=== PATIENT | male | born 1965 | race Caucasian/White ===

== ENCOUNTER → 2016-08-25 | Outpatient (CLI) | payer MEDICARE, MEDICAID ==
[~2016-08-25] MED LIST: ACET50TA PO; ALPR1TAB7 PO; BACL-67 PO; BACL10TA2 PO; BUSP5TA PO; FISH100035 PO; FLUO20CA8 PO; FLUO40CA PO; GABA-283 PO; GABA300C3 PO; HYDR-3713 PO; LODINE PO; MELA1LIQ PO; MELO7.5S PO; MIRT15TA3 PO; SALI0.652; SERO1TAB PO; TRAM50TA2 PO; TRAZ150T PO
--- NOTE | 2016-09-17 01:02 | ECWPNPC ---
PATIENT NAME: ZINA JULIEN JR : 1965 GENDER: MALE VISIT DATE: 08/25/2016 DISCHARGE DATE: 08/25/16 1138 VISIT LOCKED DATE TIME: PHYSICIAN: EVON MCBRIDE RESOURCE: EVON MCBRIDE REASON FOR APPOINTMENT 1. BACK/LEG HISTORY OF PRESENT ILLNESS HISTORY OF PRESENT ILLNESS: PAIN THE PATIENT DESCRIBES THE PAIN... FALL RISK SCREENING: SCREENING :NO FALLS IN THE PAST YEAR TODAY'S VISIT: NOTES: RATES PAIN TODAY 8/10. . IS S/P LESB ON 07/24/16. REPRTS AT LEAST 50% IMPROVEMENT IN PAIN BUT THIS ONLY LAST 1-2 WEEKS. FELT INJECT WAS IN THE RIGHT AREA AND DID FEEL RESPONSE IN RIGHT LEG. STILL USES CANE FOR SUPPORT.. CURRENT MEDICATIONS TAKING ALPRAZOLAM 0.5 MG TABLET 1 TABLET ORALLY TID PRN TAKING BUSPIRONE HCL 5 MG TABLET 1 TABLET ORALLY THREE TIMES A DAY TAKING SEROQUEL 100 100 MG TABLET ORAL DAILY TAKING MIRTAZAPINE 30 MG TABLET 1 TABLET BEFORE BEDTIME IN THE EVENING ORALLY ONCE A DAY TAKING GABAPENTIN 600 MG CAPSULE 1 CAPSULE ORALLY THREE TIMES A DAY TAKING TRAMADOL HCL 50 MG TABLET 1 TAB ORALLY TAKE 1-2 TABS PO Q 6 HRS PRN PAIN MDD=4 TAKING MAGNESIUM-OXIDE 400 (241.3 MG) MG TABLET DIRECTED ORALLY BID TAKING BACLOFEN 20 MG TABLET 1 TABLET WITH FOOD OR MILK ORALLY THREE TIMES A DAY TAKING SOMA 350 MG TABLET 1 TABLET ORALLY BID MDD=2 TAKING LISINOPRIL 5 MG TABLET ORALLY TAKING PERCOCET 5-325 MG TABLET 1 TABLET ORALLY TWICE PER DAY PRN PAIN MDD=2 TAKING NICORETTE 4 MG GUM 1 PIECE NEEDED MOUTH/THROAT 24 TIME(S) A DAY NOT-TAKING FISH OIL 2000 MG CAPSULE 1 CAPSULE ORALLY BID, NOTES: NONE RECENTLY MEDICATION LIST REVIEWED AND RECONCILED WITH THE PATIENT PAST MEDICAL HISTORY HYPERTENSION CHRONIC LOW BACK AND RIGHT LEG PAIN ALLERGIES BEE VENOM: SWELLING: ALLERGY PENICILLIN (FOR ALLERGIES USE ONLY): UNKNOWN: ALLERGY SURGICAL HISTORY DENIES PAST SURGICAL HISTORY SOCIAL HISTORY GENERAL: TOBACCO USE ARE YOU A:NONSMOKER LEARNING BARRIERS / SPECIAL NEEDS ORIENTED TO PLAN OF CARE: PATIENT, PAIN MANAGEMENT PATIENT, ORIENTED TO PLAN OF CARE: PATIENT, PAIN MANAGEMENT PATIENT. NEW PATIENT PAIN DIARY TODAY'S VISITNOTES FROM 0-10, WHAT LEVEL IS YOUR PAIN TODAY?0 PAIN CLINIC PFS, CLERGY, PUBLIC HEALTH REFERRALS PFS REFERRAL NEEDED?NO CLERGY REFERRAL NEEDED?NO PUBLIC HEALTH REFERRAL NEEDED?NO WAS THE PROVIDER NOTIFIED OF ANY PERTINENT INFO?NO PFS REFERRAL NEEDED?NO CLERGY REFERRAL NEEDED?NO PUBLIC HEALTH REFERRAL NEEDED?NO WAS THE PROVIDER NOTIFIED OF ANY PERTINENT INFO?NO HOSPITALIZATION/MAJOR DIAGNOSTIC PROCEDURE SURG RELATED REVIEW OF SYSTEMS CONSTITUTIONAL: ANY CHANGE IN YOUR MEDICAL CONDITION? NO . CHILLS NO . FEVER NO . INFECTION: DO YOU HAVE NEW INFECTIONS? NO . DO YOU HAVE HISTORY OF MRSA? NO . MUSCULOSKELETAL: ANY NEW PATTERNS OF PAIN OR NUMBNESS? NO . GASTROENTEROLOGY: ANY NEW CHANGE IN BOWEL CONTROL? NO . GENITOURINARY: ANY NEW CHANGE IN BLADDER CONTROL? NO . IS THERE A CHANCE YOU COULD BE ? NO . HEMATOLOGY/LYMPH: DO YOU TAKE ANY BLOOD THINNERS? (FOR EXAMPLE- COUMADIN, PLAVIX, AGGRENOX, PLATEL, PRADAXA, OR XARELTO) NO . WHEN WAS YOUR LAST DOSE? DATE: TIME: . NEUROLOGY: HAVE YOU FALLEN IN THE PAST 6 MONTHS? NO . ANY NEW EXTREMITY NUMBNESS OR WEAKNESS? NO . CARDIOLOGY: DO YOU HAVE A PACEMAKER OR DEFIBRILLATOR? NO . RESPIRATORY: HAVE YOU BEEN SICK IN THE PAST WEEK? NO . FEVER NO . FLU LIKE SYMPTOMS? NO . GENERAL SHORTNESS OF BREATH WITH EXERTION . COUGH NO . INTEGUMENTARY: DO YOU HAVE ANY RASHES OR OPEN SORES? NO . ALLERGIC/IMMUNO: ARE YOU ALLERGIC TO SHELLFISH OR IV DYE? NO . ANY NEW ALLERGIES? NO . PSYCHIATRIC: DO YOU HAVE THOUGHTS OF HURTING YOURSELF OR SOMEONE ELSE? NO . ARE YOU ABUSED, NEGLECTED, OR IN AN UNSAFE ENVIRONMENT? NO . ENDOCRINOLOGY: ARE YOU DIABETIC? NO . OTHER: DO YOU NEED ANY PRESCRIPTIONS? NO . IF YES, PLEASE LIST: ____ . ANY NEW PROBLEMS WITH YOUR MEDICATIONS? NO . WHEN DID YOU LAST EAT? ____ . WHEN DID YOU LAST DRINK? ____ . WHAT DID YOU LAST DRINK? ____ . NAME OF PERSON DRIVING YOU HOME? ____ . DO YOU HAVE ANY OTHER QUESTIONS OR CONCERNS NO . REVIEWED BY: PROVIDER: EVON MATTHEW . VITAL SIGNS WT 293 LBS, HT 78 IN, BMI 33.86 INDEX, BP 162/79 MM HG, HR 81 /MIN, RR 16 /MIN, TEMP 97.1 F, OXYGEN SAT % 98, NA INITIALS TL 1100, REVIEWED BY: LS. EXAMINATION GENERAL EXAMINATION: PSYCHALERT , ORIENTED X 3 , APPROPRIATE MOOD AND AFFECT . LUNGS:CLEAR TO AUSCULTATION BILATERALLY. HEART:HEART RATE REGULAR. MUSCULOSKELETAL:PALPATION: POSITIVE FOR PAIN OVER L/S SPINE. POSITIVE FOR PAIN OVER L/S PARSPINALS. POINT TENDERNESS OVER RIGHT SIJ. WEAKNESS IN RIGHT LEG DISTALLY AND PROXIMALLY. CANE USED FOR BALANCE. GAIT ANTALGIC. EXTREMITIES:RIGHT LEG - , TRACE EDEMA, LEG ROTATED AT KNEE. POOR FLEXION/EXTENSION RIGHT ANKLE. ASSESSMENTS INTERVERTEBRAL DISC DISORDER WITH RADICULOPATHY OF LUMBAR REGION - M51.16 (PRIMARY) CHRONIC PRESCRIPTION OPIATE USE - Z79.891 MYALGIA - M79.1 TREATMENT INTERVERTEBRAL DISC DISORDER WITH RADICULOPATHY OF LUMBAR REGION TRIGGER POINT 3 + JAYYJO-ANNEVON LEBRON [place] 08/25/2016 11:24:27 AM > MID AND LOW BACK NOTES: CONTINUE CURRENT MEDS. ICE TO LOW BACK. WALK EVERY DAY. CONTINUE CURRENT MEDS. , #128 - SCREENING BMI AND F/U PLAN IN : BMI ABOVE NORMAL TODAY. DISCUSSED WITH PATIENT NUTRITIONAL FOOD CHOICES TO ASSIST WITH WEIGHT LOSS. RECCOMMENDED REDUCING SALT, SUGAR, SODA INTAKE. RECOMMEND INCREASE ACTIVITY TO INCLUDE WALKING ON A REGULAR BASIS., FALLS CARE PLAN: 1. RECOMMEND REMOVING ALL THROW RUGS. 2. RECOMMEND NIGHT LIGHTS 3. RECOMMEND WEARING RUBBER SOLED SHOES AND TO NOT GO BAREFOOT. 4.. ADVISED TO CHANGE POSITION SLOWLY FROM SUPINE TO STANDING TO AVOID DIZZINESS. 5. ADVISED TO USE ASSISTIVE DEVICE SUCH CANE OR WALKER 6. USE LIFELINE SERVICES OR KEEP PORTABLE PHONE READILY AVAILABLE. CLINICAL NOTES: ISTOP REGISTRY REVIEWED AND DEMNOSTRATES COMPLLIANCE. BRINGS IN MEDICATIONS WHICH IS APPROPRIATE FOR WHAT WAS DISPENSED. RECENT URINE TOXICOLOGY REVIEWED. NO UNAUTHORIZED MEDICATIONS. NO ILLICIT SUBSTANCES AND PRESCRIBED MEDICATIONS WERE PRESENT. PREVENTIVE MEDICINE PAIN CLINIC TEACHING: PROCEDURE TEACHING PRE TRIGGER POINT INJECTION INSTRUCTIONS REVIEWED WITH PT. VERBALZIED UNDERSTANDING.. PROCEDURE CODES FA211 ESTABILISHED PATIENT [facility] CHARGE G8443 BP SCR PRFRM RCMDD DEFIND SCR INTVL G5830 PAIN ASSESS POS TOOL F/U PLAN DOC 3016F PT SCRND UNHLTHY [place] USE 1124F ACP DISCUSS-NO DSCNMKR DOCD 1036F TOBACCO NON-USER 0518F FALL PLAN OF CARE DOCD G8427 DOC MEDS VERIFIED W/PT OR RE G8417 BMI >=30 CALCUATE W/FOLLOWUP 3288F FALL RISK ASSESSMENT DOCD FOLLOW UP AFTER INJECTION (REASON: CHECK AUTH FOR TPI. PLEASE CHECK INSURANCE. PT DOESN'T THINK HE HAS MEDICARE EXCEPT FOR MEDS) ELECTRONICALLY SIGNED BY MARILU ROA ON 09/16/2016 AT 11:07 AM EST DISCLAIMER : THIS IS A VISIT SUMMARY EXTRACTED FROM THE [facility] CHART. IT IS NOT A COPY OF THE [facility] PROGRESS NOTE. MTDD
== END ==
LOC: M PAIN 10:20
PROVIDERS: ATTEND Nurse Practitioner Family
DX: Z09 Encounter for follow-up examination after completed treatment for conditions other than malignant neoplasm (principal); G89.29 Other chronic pain; M51.16 Intervertebral disc disorders with radiculopathy, lumbar region; M79.1 Myalgia; I10 Essential (primary) hypertension; M54.5 Low back pain; M79.604 Pain in right leg; Z91.030 Bee allergy status; Z88.0 Allergy status to penicillin; Z79.891 Long term (current) use of opiate analgesic; Z79.899 Other long term (current) drug therapy

== ENCOUNTER → 2016-09-03 | Outpatient (CLI) | payer MEDICARE, MEDICAID ==
[~2016-09-03] MED LIST changes: +BUPIVACAINE HCL 0.25% 10 ML VIAL As Ordered ONE; +BUPIVACAINE HCL 0.25% 30 ML VIAL As Ordered ONE; +TRIAMCINOLONE ACETONIDE SUSP 40 MG/ML VIAL (J3301) As Ordered ONE; +diazePAM 5 MG TAB As Ordered ONE; +oxyCODONE 5MG TAB As Ordered ONE
--- NOTE | 2016-09-13 23:59 | ECWPNPC ---
PATIENT NAME: ZINA JULIEN JR : 1965 GENDER: MALE VISIT DATE: 09/03/2016 DISCHARGE DATE: 09/03/16 1235 VISIT LOCKED DATE TIME: PHYSICIAN: JIM LANDIN RESOURCE: JIM LANDIN REASON FOR APPOINTMENT 1. MID & LOW BACK CURRENT MEDICATIONS TAKING ALPRAZOLAM 0.5 MG TABLET 1 TABLET ORALLY TID PRN, NOTES: 09-03-16729 TAKING BUSPIRONE HCL 5 MG TABLET 1 TABLET ORALLY THREE TIMES A DAY, NOTES: 09-03-16729 TAKING SEROQUEL 100 100 MG TABLET ORAL DAILY, NOTES: 09-02-161999 TAKING MIRTAZAPINE 30 MG TABLET 1 TABLET BEFORE BEDTIME IN THE EVENING ORALLY ONCE A DAY, NOTES: 09-02-161999 TAKING GABAPENTIN 600 MG CAPSULE 1 CAPSULE ORALLY THREE TIMES A DAY, NOTES: 09-03-16729 TAKING TRAMADOL HCL 50 MG TABLET 1 TAB ORALLY TAKE 1-2 TABS PO Q 6 HRS PRN PAIN MDD=4, NOTES: 09-03-16729 TAKING MAGNESIUM-OXIDE 400 (241.3 MG) MG TABLET DIRECTED ORALLY BID, NOTES: 09-03-16729 TAKING BACLOFEN 20 MG TABLET 1 TABLET WITH FOOD OR MILK ORALLY THREE TIMES A DAY, NOTES: 09-03-16729 TAKING SOMA 350 MG TABLET 1 TABLET ORALLY BID MDD=2, NOTES: 09-03-16729 TAKING LISINOPRIL 5 MG TABLET ORALLY , NOTES: 09-03-16729 TAKING PERCOCET 5-325 MG TABLET 1 TABLET ORALLY TWICE PER DAY PRN PAIN MDD=2, NOTES: 09-03-16729 TAKING NICORETTE 4 MG GUM 1 PIECE NEEDED MOUTH/THROAT 24 TIME(S) A DAY, NOTES: 09-02-161999 NOT-TAKING FISH OIL 2000 MG CAPSULE 1 CAPSULE ORALLY BID, NOTES: NONE RECENTLY MEDICATION LIST REVIEWED AND RECONCILED WITH THE PATIENT PAST MEDICAL HISTORY HYPERTENSION CHRONIC LOW BACK AND RIGHT LEG PAIN ALLERGIES BEE VENOM: SWELLING: ALLERGY PENICILLIN (FOR ALLERGIES USE ONLY): UNKNOWN: ALLERGY VITAL SIGNS WT 282.4 LBS, HT 78 IN, BMI 32.63 INDEX, BP 141/69 MM HG, HR 68 /MIN, RR 16 /MIN, TEMP 96.0 F, OXYGEN SAT % 97, NA INITIALS TL 1038, REVIEWED BY: KG. ASSESSMENTS MYALGIA - M79.1 (PRIMARY) PROCEDURES PN TRIGGER POINT INJECTION WITH STEROIDS PRE PROCEDURE DIAGNOSIS 1. MYALGIA 2. PAIN AT BILATERAL LOW BACK AREA POST PROCEDURE DIAGNOSIS 1. MYALGIA 2. PAIN AT BILATERAL LOW BACK AREA PROCEDURE TRIGGER POINT INJECTION AT BILATERAL LOW BACK AREA SURGEON DR. JIM LANDIN DEHYDROGENATION OPERATOR HEAD NONE ANESTHESIA LOCAL PRE PROCEDURE NOTE THE PATIENT HAS A HISTORY OF CHRONIC PAIN AT THE RIGHT AND LEFT LOW BACK AREA. I EVALUATE THE PATIENT AND REVIEWED THE CHART. THERE IS EVIDENCE OF BANDS OF TISSUE WITH RESTRICTION OF MOVEMENT AND PRESENCE OF TRIGGER POINT AT THE AFFECTED AREA. I WENT OVER THE RISKS, ALTERNATIVES, AND BENEFITS ASSOCIATED WITH THIS PROCEDURE. THE PATIENT WOULD LIKE TO PROCEED AND GIVE CONSENT TO PERFORMED THE PROCEDURE. THE PATIENT DENIES UNEXPLAINABLE WEIGHT LOSS, FEVER, CHILLS, OR NEW CHANGES IN URINARY OR BOWEL CONTROL DESCRIPTION OF PROCEDURE THE PATIENT WAS BROUGHT TO THE PROCEDURE ROOM AND PLACED IN THE SITTING POSITION. THE AREA WAS CLEANED WITH ALCOHOL. THE PROCEDURE WAS DONE USING ASEPTIC STERILE TECHNIQUE. I CHECKED LATERALITY AND THE LEVEL WHERE THE PROCEDURE WAS GOING TO BE PERFORMED WITH THE PATIENT AND THE SUPPORTING STAFF AT THE MOMENT OF THE TIME OUT IN THE PROCEDURE ROOM. USING A 25-GAUGE NEEDLE, TRIGGER POINTS WERE INJECTED AT THE RIGHT AND LEFT LOW BACK AREA WITH A TOTAL OF 40 ML OF BUPIVACAINE 0.25% AND KENALOG 40 MG. THERE WAS NO EVIDENCE OF BLOOD, PARESTHESIA OR CEREBROSPINAL FLUID DURING THE PROCEDURE. THE PATIENT WAS SENT TO THE RECOVERY ROOM. THE PATIENT WAS MOVING THE EXTREMITIES AND DOING WELL. THERE WAS NO COMPLICATION DURING THE PROCEDURE POST PROCEDURE NOTE THE PATIENT WILL BE SEEN IN A FOLLOW UP IN THE NEXT FEW WEEKS. INSTRUCTIONS WERE GIVEN, QUESTIONS WERE ANSWERED, AND THE PATIENT EXPRESSED UNDERSTANDING AND AGREES WITH THE PLAN. INSTRUCTIONS WERE GIVEN, QUESTIONS WERE ANSWERED, PATIENT REPORTS UNDERSTANDING AND AGREES WITH THE PLAN. I, ESTEFANY BARBA, DOCUMENTED THE ABOVE INFORMATION ACTING A SCRIBE FOR DR. LANDIN. I HAVE REVIEWED THE ABOVE DOCUMENT, WRITTEN BY ESTEFANY DENISE AND I VERIFY THAT IT IS ACCURATE. PROCEDURE CODES 62411 INJ TRIGGER POINT / [facility] FOLLOW UP 3 WEEKS ELECTRONICALLY SIGNED BY JIM LANDIN MD ON 09/13/2016 AT 07:31 PM EST DISCLAIMER : THIS IS A VISIT SUMMARY EXTRACTED FROM THE [employer] CHART. IT IS NOT A COPY OF THE [employer] PROGRESS NOTE. [facility]
== END ==
LOC: M PAIN 10:40
PROVIDERS: ATTEND Anesthesiology
DX: G89.29 Other chronic pain (principal); M79.1 Myalgia; M54.5 Low back pain; I10 Essential (primary) hypertension; Z91.030 Bee allergy status; Z88.0 Allergy status to penicillin; Z79.891 Long term (current) use of opiate analgesic; Z79.899 Other long term (current) drug therapy
CPT/HCPCS: 20552; J3301

== ENCOUNTER → 2016-10-08 | Outpatient (CLI) | payer MEDICARE, MEDICAID ==
[~2016-10-08] MED LIST changes: -BUPIVACAINE HCL 0.25% 10 ML VIAL As Ordered ONE; -BUPIVACAINE HCL 0.25% 30 ML VIAL As Ordered ONE; -TRIAMCINOLONE ACETONIDE SUSP 40 MG/ML VIAL (J3301) As Ordered ONE; -diazePAM 5 MG TAB As Ordered ONE; -oxyCODONE 5MG TAB As Ordered ONE
--- NOTE | 2016-10-09 00:46 | ECWPNPC ---
PATIENT NAME: ZINA JULIEN JR : 1965 GENDER: MALE VISIT DATE: 10/08/2016 DISCHARGE DATE: 10/08/16 1101 VISIT LOCKED DATE TIME: PHYSICIAN: EVON MCBRIDE RESOURCE: EVON MCBRIDE REASON FOR APPOINTMENT 1. BACK HISTORY OF PRESENT ILLNESS HISTORY OF PRESENT ILLNESS: PAIN THE PATIENT DESCRIBES THE PAIN... FALL RISK SCREENING: SCREENING :NO FALLS IN THE PAST YEAR TODAY'S VISIT: NOTES: RATES PAIN TODAY 6/10. IS S/P TPI WHICH WERE VERY PAIN FUL BUT DID DECREASE THE PAIN IN THE LOW BACK. CAN MOVE MORE EASILY.STATES HE DOES NOT WANT ANY FURTHER INJECTIONS. REPORTS PERSISTANT PAIN IN RIGHT LEG WHICH HAS NEVER IMROVED. HAS BEEN WORKING HARD ON WEIGHT LOSS AND GENERALLY FEELS BETTER.. CURRENT MEDICATIONS TAKING ALPRAZOLAM 0.5 MG TABLET 1 TABLET ORALLY TID PRN TAKING BUSPIRONE HCL 5 MG TABLET 1 TABLET ORALLY THREE TIMES A DAY TAKING SEROQUEL 100 100 MG TABLET ORAL DAILY TAKING MIRTAZAPINE 30 MG TABLET 1 TABLET BEFORE BEDTIME IN THE EVENING ORALLY ONCE A DAY TAKING GABAPENTIN 600 MG CAPSULE 1 CAPSULE ORALLY THREE TIMES A DAY TAKING TRAMADOL HCL 50 MG TABLET 1 TAB ORALLY TAKE 1-2 TABS PO Q 6 HRS PRN PAIN MDD=4 TAKING MAGNESIUM-OXIDE 400 (241.3 MG) MG TABLET DIRECTED ORALLY BID TAKING BACLOFEN 20 MG TABLET 1 TABLET WITH FOOD OR MILK ORALLY THREE TIMES A DAY TAKING SOMA 350 MG TABLET 1 TABLET ORALLY BID MDD=2 TAKING LISINOPRIL 5 MG TABLET ORALLY TAKING NICORETTE 4 MG GUM 1 PIECE NEEDED MOUTH/THROAT 24 TIME(S) A DAY TAKING PERCOCET 5-325 MG TABLET 1 TABLET ORALLY TWICE PER DAY PRN PAIN MDD=2 NOT-TAKING FISH OIL 2000 MG CAPSULE 1 CAPSULE ORALLY BID, NOTES: NONE RECENTLY MEDICATION LIST REVIEWED AND RECONCILED WITH THE PATIENT PAST MEDICAL HISTORY HYPERTENSION CHRONIC LOW BACK AND RIGHT LEG PAIN ALLERGIES BEE VENOM: SWELLING: ALLERGY PENICILLIN (FOR ALLERGIES USE ONLY): UNKNOWN: ALLERGY SOCIAL HISTORY GENERAL: TOBACCO USE ARE YOU A:NONSMOKER LEARNING BARRIERS / SPECIAL NEEDS ORIENTED TO PLAN OF CARE: PATIENT, PAIN MANAGEMENT PATIENT, ORIENTED TO PLAN OF CARE: PATIENT, PAIN MANAGEMENT PATIENT. NEW PATIENT PAIN DIARY TODAY'S VISITNOTES FROM 0-10, WHAT LEVEL IS YOUR PAIN TODAY?0 PAIN CLINIC PFS, CLERGY, PUBLIC HEALTH REFERRALS PFS REFERRAL NEEDED?NO CLERGY REFERRAL NEEDED?NO PUBLIC HEALTH REFERRAL NEEDED?NO WAS THE PROVIDER NOTIFIED OF ANY PERTINENT INFO?NO PFS REFERRAL NEEDED?NO CLERGY REFERRAL NEEDED?NO PUBLIC HEALTH REFERRAL NEEDED?NO WAS THE PROVIDER NOTIFIED OF ANY PERTINENT INFO?NO REVIEW OF SYSTEMS CONSTITUTIONAL: ANY CHANGE IN YOUR MEDICAL CONDITION? NO . CHILLS NO . FEVER NO . INFECTION: DO YOU HAVE NEW INFECTIONS? NO . DO YOU HAVE HISTORY OF MRSA? NO . MUSCULOSKELETAL: ANY NEW PATTERNS OF PAIN OR NUMBNESS? NO . GASTROENTEROLOGY: ANY NEW CHANGE IN BOWEL CONTROL? NO . GENITOURINARY: ANY NEW CHANGE IN BLADDER CONTROL? NO . IS THERE A CHANCE YOU COULD BE ? NO . HEMATOLOGY/LYMPH: DO YOU TAKE ANY BLOOD THINNERS? (FOR EXAMPLE- COUMADIN, PLAVIX, AGGRENOX, PLATEL, PRADAXA, OR XARELTO) NO . WHEN WAS YOUR LAST DOSE? DATE: TIME: . NEUROLOGY: HAVE YOU FALLEN IN THE PAST 6 MONTHS? NO . ANY NEW EXTREMITY NUMBNESS OR WEAKNESS? NO . CARDIOLOGY: DO YOU HAVE A PACEMAKER OR DEFIBRILLATOR? NO . CHEST PAIN PATIENT DENIES . RESPIRATORY: HAVE YOU BEEN SICK IN THE PAST WEEK? NO . FEVER NO . FLU LIKE SYMPTOMS? NO . DO YOU USE ANY TYPE OF TOBACCO (SMOKE, SMOKELESS, CHEW)? REMAINS NONSMOKING . COUGH NO . INTEGUMENTARY: DO YOU HAVE ANY RASHES OR OPEN SORES? NO . ALLERGIC/IMMUNO: ARE YOU ALLERGIC TO SHELLFISH OR IV DYE? NO . ANY NEW ALLERGIES? NO . PSYCHIATRIC: DO YOU HAVE THOUGHTS OF HURTING YOURSELF OR SOMEONE ELSE? NO . ARE YOU ABUSED, NEGLECTED, OR IN AN UNSAFE ENVIRONMENT? NO . ENDOCRINOLOGY: ARE YOU DIABETIC? YES . OTHER: DO YOU NEED ANY PRESCRIPTIONS? NO . IF YES, PLEASE LIST: ____ . ANY NEW PROBLEMS WITH YOUR MEDICATIONS? NO . WHEN DID YOU LAST EAT? ____ . WHEN DID YOU LAST DRINK? ____ . WHAT DID YOU LAST DRINK? ____ . NAME OF PERSON DRIVING YOU HOME? ____ . DO YOU HAVE ANY OTHER QUESTIONS OR CONCERNS NO . REVIEWED BY: PROVIDER: . VITAL SIGNS WT 282.2 LBS, HT 78 IN, BMI 32.61 INDEX, BP 164/76 MM HG, HR 86 /MIN, RR 20 /MIN, TEMP 95.4 F, OXYGEN SAT % 96%, NA INITIALS SC 10:10, REVIEWED BY: KG. EXAMINATION GENERAL EXAMINATION: PSYCHALERT , ORIENTED X 3 , APPROPRIATE MOOD AND AFFECT, SMILING TODAY . LUNGS:CLEAR TO AUSCULTATION BILATERALLY. HEART:HEART RATE REGULAR. MUSCULOSKELETAL:PALPATION: TENDER OVER LUMBAR SPINOUS PROCESSES WEAKKNESS IN RIGHT LEG DISTALLY AND PROXIMALLY. CANE USED FOR BALANCE. GAIT ANTALGIC. VERY FEW TRIGGERPOINT IDENTIFIED OVER LUMBAR PARASPINOUS MUSCLES.. EXTREMITIES:RIGHT LEG - LEG ROTATED AT KNEE. POOR FLEXION/EXTENSION RIGHT ANKLE. ASSESSMENTS MYALGIA - M79.1 (PRIMARY) INTERVERTEBRAL DISC DISORDER WITH RADICULOPATHY OF LUMBAR REGION - M51.16 CHRONIC PRESCRIPTION OPIATE USE - Z79.891 TREATMENT MYALGIA REFILL SOMA TABLET, 350 MG, 1 TABLET, ORALLY, BID MDD=2, 30 DAY(S), 60, REFILLS 3 REFILL TRAMADOL HCL TABLET, 50 MG, 1 TAB, ORALLY, TAKE 1-2 TABS PO Q 6 HRS PRN PAIN MDD=4, 30 DAY(S), 120, REFILLS 5 REFILL PERCOCET TABLET, 5-325 MG, 1 TABLET, ORALLY, TWICE PER DAY PRN PAIN MDD=2, 30 DAY(S), 60, REFILLS 0 REFILL GABAPENTIN CAPSULE, 600 MG, 1 CAPSULE, ORALLY, THREE TIMES A DAY, 30 DAY(S), 90 CAPSULE, REFILLS 5 NOTES: KEEP WALKING AND MOVING. PROCEDURE CODES FA211 ESTABILISHED PATIENT [facility] CHARGE G8783 BP SCR PRFRM RCMDD DEFIND SCR INTVL G8730 PAIN ASSESS POS TOOL F/U PLAN DOC 3016F PT SCRND UNHLTHY [place] USE 1124F ACP DISCUSS-NO DSCNMKR DOCD 1036F TOBACCO NON-USER 0518F FALL PLAN OF CARE DOCD G8427 DOC MEDS VERIFIED W/PT OR RE G8417 BMI >=30 CALCUATE W/FOLLOWUP 3288F FALL RISK ASSESSMENT DOCD DISPOSITION & COMMUNICATION FOLLOW UP 2 MONTHS ELECTRONICALLY SIGNED BY MARILU ROA ON 10/08/2016 AT 11:04 AM EST DISCLAIMER : THIS IS A VISIT SUMMARY EXTRACTED FROM THE [facility] CHART. IT IS NOT A COPY OF THE [facility] PROGRESS NOTE. MTDD
== END ==
LOC: M PAIN 10:00
PROVIDERS: ATTEND Nurse Practitioner Family
DX: Z09 Encounter for follow-up examination after completed treatment for conditions other than malignant neoplasm (principal); G89.29 Other chronic pain; M79.1 Myalgia; M51.16 Intervertebral disc disorders with radiculopathy, lumbar region; I10 Essential (primary) hypertension; E11.9 Type 2 diabetes mellitus without complications; Z91.030 Bee allergy status; Z88.0 Allergy status to penicillin; Z79.891 Long term (current) use of opiate analgesic; Z79.899 Other long term (current) drug therapy

== ENCOUNTER → 2016-11-20 | Outpatient (CLI) | payer MEDICARE, MEDICAID ==
[~2016-11-20] MED LIST changes: +GABA-282 PO; -GABA300C3 PO
--- NOTE | 2016-12-05 00:53 | ECWPNPC ---
PATIENT NAME: ZINA JULIEN JR : 1965 GENDER: MALE VISIT DATE: 11/20/2016 DISCHARGE DATE: 11/20/16 1031 VISIT LOCKED DATE TIME: PHYSICIAN: EVON MCBRIDE RESOURCE: EVON MCBRIDE REASON FOR APPOINTMENT 1. BACK HISTORY OF PRESENT ILLNESS HISTORY OF PRESENT ILLNESS: PAIN THE PATIENT DESCRIBES THE PAIN... FALL RISK SCREENING: SCREENING :NO FALLS IN THE PAST YEAR TODAY'S VISIT: NOTES: TENDER ACROSS THE LOW BACKAND RIGHT LEG TO LEVEL OF HIP. RATES PAIN TODAY 6/10. DESCRIBES PAIN CONSTANT, SHARP, STABBING, TENDER AND SORE. NOTES HE IS VERY STIFF ESPECIALLY IN THE MORNING. CURRENT MEDICATIONS TAKING ALPRAZOLAM 0.5 MG TABLET 1 TABLET ORALLY TID PRN TAKING BUSPIRONE HCL 5 MG TABLET 1 TABLET ORALLY THREE TIMES A DAY TAKING SEROQUEL 100 100 MG TABLET ORAL DAILY TAKING MIRTAZAPINE 30 MG TABLET 1 TABLET BEFORE BEDTIME IN THE EVENING ORALLY ONCE A DAY TAKING LISINOPRIL 5 MG TABLET ORALLY TAKING NICORETTE 4 MG GUM 1 PIECE NEEDED MOUTH/THROAT 24 TIME(S) A DAY TAKING SOMA 350 MG TABLET 1 TABLET ORALLY BID MDD=2 TAKING TRAMADOL HCL 50 MG TABLET 1 TAB ORALLY TAKE 1-2 TABS PO Q 6 HRS PRN PAIN MDD=4 TAKING GABAPENTIN 600 MG CAPSULE 1 CAPSULE ORALLY THREE TIMES A DAY TAKING MAGNESIUM-OXIDE 400 (241.3 MG) MG TABLET DIRECTED ORALLY BID TAKING BACLOFEN 20 MG TABLET 1 TABLET WITH FOOD OR MILK ORALLY THREE TIMES A DAY TAKING PERCOCET 5-325 MG TABLET 1 TABLET ORALLY TWICE PER DAY PRN PAIN MDD=2 NOT-TAKING FISH OIL 2000 MG CAPSULE 1 CAPSULE ORALLY BID, NOTES: NONE RECENTLY MEDICATION LIST REVIEWED AND RECONCILED WITH THE PATIENT PAST MEDICAL HISTORY HYPERTENSION CHRONIC LOW BACK AND RIGHT LEG PAIN ALLERGIES BEE VENOM: SWELLING: ALLERGY PENICILLIN (FOR ALLERGIES USE ONLY): UNKNOWN: ALLERGY SOCIAL HISTORY GENERAL: PAIN CLINIC PFS, CLERGY, PUBLIC HEALTH REFERRALS CLERGY REFERRAL NEEDED?NO WAS THE PROVIDER NOTIFIED OF ANY PERTINENT INFO?NO PFS REFERRAL NEEDED?NO PUBLIC HEALTH REFERRAL NEEDED?NO PATIENT: ____. REVIEW OF SYSTEMS CONSTITUTIONAL: ANY CHANGE IN YOUR MEDICAL CONDITION? NO . CHILLS NO . FEVER NO . INFECTION: DO YOU HAVE NEW INFECTIONS? NO . DO YOU HAVE HISTORY OF MRSA? NO . MUSCULOSKELETAL: ANY NEW PATTERNS OF PAIN OR NUMBNESS? NO . GASTROENTEROLOGY: ANY NEW CHANGE IN BOWEL CONTROL? NO . GENITOURINARY: ANY NEW CHANGE IN BLADDER CONTROL? NO . IS THERE A CHANCE YOU COULD BE ? NO . HEMATOLOGY/LYMPH: DO YOU TAKE ANY BLOOD THINNERS? (FOR EXAMPLE- COUMADIN, PLAVIX, AGGRENOX, PLATEL, PRADAXA, OR XARELTO) NO . WHEN WAS YOUR LAST DOSE? DATE: TIME: . NEUROLOGY: HAVE YOU FALLEN IN THE PAST 6 MONTHS? NO . ANY NEW EXTREMITY NUMBNESS OR WEAKNESS? NO . CARDIOLOGY: DO YOU HAVE A PACEMAKER OR DEFIBRILLATOR? NO . RESPIRATORY: HAVE YOU BEEN SICK IN THE PAST WEEK? NO . FEVER NO . FLU LIKE SYMPTOMS? NO . COUGH NO . INTEGUMENTARY: DO YOU HAVE ANY RASHES OR OPEN SORES? NO . ALLERGIC/IMMUNO: ARE YOU ALLERGIC TO SHELLFISH OR IV DYE? NO . ANY NEW ALLERGIES? NO . PSYCHIATRIC: DO YOU HAVE THOUGHTS OF HURTING YOURSELF OR SOMEONE ELSE? NO . ARE YOU ABUSED, NEGLECTED, OR IN AN UNSAFE ENVIRONMENT? NO . ENDOCRINOLOGY: ARE YOU DIABETIC? NO . OTHER: DO YOU NEED ANY PRESCRIPTIONS? YES . IF YES, PLEASE LIST: BACLOFEN . ANY NEW PROBLEMS WITH YOUR MEDICATIONS? NO . WHEN DID YOU LAST EAT? ____ . WHEN DID YOU LAST DRINK? ____ . WHAT DID YOU LAST DRINK? ____ . NAME OF PERSON DRIVING YOU HOME? ____ . DO YOU HAVE ANY OTHER QUESTIONS OR CONCERNS NO . REVIEWED BY: PROVIDER: EVON MATTHEW . VITAL SIGNS WT 290 LBS, HT 78 IN, BMI 33.51 INDEX, BP 166/72 MM HG, HR 80 /MIN, RR 20 /MIN, TEMP 97.2 F, OXYGEN SAT % 93%, NA INITIALS SC 10:16, REVIEWED BY: NL. EXAMINATION GENERAL EXAMINATION: PSYCHALERT , ORIENTED X 3 , APPROPRIATE MOOD AND AFFECT, SMILING TODAY . LUNGS:CLEAR TO AUSCULTATION BILATERALLY. HEART:HEART RATE REGULAR. MUSCULOSKELETAL:PALPATION: TENDER OVER LUMBAR SPINOUS PROCESSES WEAKKNESS IN RIGHT LEG DISTALLY AND PROXIMALLY. CANE USED FOR BALANCE. GAIT ANTALGIC. VERY FEW TRIGGERPOINT IDENTIFIED OVER LUMBAR PARASPINOUS MUSCLES.. EXTREMITIES:RIGHT LEG - LEG ROTATED AT KNEE. POOR FLEXION/EXTENSION RIGHT ANKLE. ASSESSMENTS INTERVERTEBRAL DISC DISORDER WITH RADICULOPATHY OF LUMBAR REGION - M51.16 (PRIMARY) MYALGIA - M79.1 TREATMENT INTERVERTEBRAL DISC DISORDER WITH RADICULOPATHY OF LUMBAR REGION REFILL BACLOFEN TABLET, 20 MG, 1 TABLET WITH FOOD OR MILK, ORALLY, THREE TIMES A DAY, 30 DAY(S), 90 TABLET, REFILLS 5 NOTES: CONTINUE CURRENT MEDSCONTINUE EXERCISES AND STRETCHES. KEEP MEDS SECURED. CLINICAL NOTES: ISTOP REGISTRY REVIEWED AND DEMNOSTRATES COMPLLIANCE. BRINGS IN MEDICATIONS WHICH IS APPROPRIATE FOR WHAT WAS DISPENSED. RECENT URINE TOXICOLOGY REVIEWED. NO UNAUTHORIZED MEDICATIONS. NO ILLICIT SUBSTANCES AND PRESCRIBED MEDICATIONS WERE PRESENT. PROCEDURE CODES [id number] ESTABILISHED PATIENT [facility] CHARGE [id number] PAIN ASSESS POS TOOL F/U PLAN DOC G8427 DOC MEDS VERIFIED W/PT OR RE DISPOSITION & COMMUNICATION FOLLOW UP 3 MONTHS ELECTRONICALLY SIGNED BY MARILU ROA ON 12/04/2016 AT 09:09 AM EDT DISCLAIMER : THIS IS A VISIT SUMMARY EXTRACTED FROM THE [facility] CHART. IT IS NOT A COPY OF THE [facility] PROGRESS NOTE. CINDY
== END ==
LOC: M PAIN 10:00
PROVIDERS: ATTEND Nurse Practitioner Family
DX: M51.16 Intervertebral disc disorders with radiculopathy, lumbar region (principal); M79.1 Myalgia; I10 Essential (primary) hypertension; Z88.0 Allergy status to penicillin; Z91.030 Bee allergy status; Z79.891 Long term (current) use of opiate analgesic

== ENCOUNTER → 2017-02-19 | Outpatient (CLI) | payer MEDICARE, MEDICAID ==
[~2017-02-19] MED LIST changes: -BACL-67 PO; +BACL1TAB9 PO
--- NOTE | 2017-03-15 00:34 | ECWPNPC ---
PATIENT NAME: ZINA JULIEN JR : 1965 GENDER: MALE VISIT DATE: 02/19/2017 DISCHARGE DATE: 02/19/17 1106 VISIT LOCKED DATE TIME: PHYSICIAN: EVON MCBRIDE RESOURCE: EVON MCBRIDE REASON FOR APPOINTMENT 1. BACK HISTORY OF PRESENT ILLNESS HISTORY OF PRESENT ILLNESS: PAIN THE PATIENT DESCRIBES THE PAIN... FALL RISK SCREENING: SCREENING :NO FALLS IN THE PAST YEAR TODAY'S VISIT: NOTES: RATES PAIN LEVEL TODAY 4-6/10 PAIN CONTINUES IN LOW BACK WITH RADIATION DOWN RIGHT LEG TO FOOT. HAS BEEN DECREASING MEDICATIONS. PAIN WAS BETTER WITH THE SOMA BUT CAN NOT AFFORD THEM. . CURRENT MEDICATIONS TAKING ALPRAZOLAM 0.5 MG TABLET 1 TABLET ORALLY TWICE A DAY TAKING BUSPIRONE HCL 5 MG TABLET 1 TABLET ORALLY TWICE A DAY TAKING SEROQUEL 100 100 MG TABLET ORAL DAILY TAKING MIRTAZAPINE 30 MG TABLET 1 TABLET BEFORE BEDTIME IN THE EVENING ORALLY ONCE A DAY TAKING LISINOPRIL 5 MG TABLET ORALLY TAKING NICORETTE 4 MG GUM 1 PIECE NEEDED MOUTH/THROAT 24 TIME(S) A DAY TAKING TRAMADOL HCL 50 MG TABLET 1 TAB ORALLY TAKE 1-2 TABS PO Q 6 HRS PRN PAIN MDD=4 TAKING MAGNESIUM-OXIDE 400 (241.3 MG) MG TABLET DIRECTED ORALLY ONCE DAILY TAKING BACLOFEN 20 MG TABLET 1 TABLET WITH FOOD OR MILK ORALLY TWICE DAILY TAKING PERCOCET 5-325 MG TABLET 1 TABLET ORALLY TWICE PER DAY PRN PAIN MDD=2 TAKING SOMA 350 MG TABLET 1 TABLET ORALLY BID MDD=2, NOTES: NOT TAKING / INSURANCE NOT-TAKING GABAPENTIN 600 MG CAPSULE 1 CAPSULE ORALLY THREE TIMES A DAY NOT-TAKING FISH OIL 2000 MG CAPSULE 1 CAPSULE ORALLY BID, NOTES: NONE RECENTLY MEDICATION LIST REVIEWED AND RECONCILED WITH THE PATIENT PAST MEDICAL HISTORY HYPERTENSION CHRONIC LOW BACK AND RIGHT LEG PAIN ALLERGIES BEE VENOM: SWELLING: ALLERGY PENICILLIN (FOR ALLERGIES USE ONLY): UNKNOWN: ALLERGY REVIEW OF SYSTEMS REVIEWED BY: PROVIDER: EVON MATTHEW . CONSTITUTIONAL: ANY CHANGE IN YOUR MEDICAL CONDITION? NO . CHILLS NO . FEVER NO . INFECTION: DO YOU HAVE NEW INFECTIONS? NO . DO YOU HAVE HISTORY OF MRSA? NO . MUSCULOSKELETAL: ANY NEW PATTERNS OF PAIN OR NUMBNESS? NO . GASTROENTEROLOGY: ANY NEW CHANGE IN BOWEL CONTROL? NO . GENITOURINARY: ANY NEW CHANGE IN BLADDER CONTROL? NO . IS THERE A CHANCE YOU COULD BE ? NO . HEMATOLOGY/LYMPH: DO YOU TAKE ANY BLOOD THINNERS? (FOR EXAMPLE- COUMADIN, PLAVIX, AGGRENOX, PLATEL, PRADAXA, OR XARELTO) NO . WHEN WAS YOUR LAST DOSE? DATE: TIME: . NEUROLOGY: HAVE YOU FALLEN IN THE PAST 6 MONTHS? NO . ANY NEW EXTREMITY NUMBNESS OR WEAKNESS? NO . CARDIOLOGY: DO YOU HAVE A PACEMAKER OR DEFIBRILLATOR? NO . RESPIRATORY: HAVE YOU BEEN SICK IN THE PAST WEEK? NO . FEVER NO . FLU LIKE SYMPTOMS? NO . COUGH NO . INTEGUMENTARY: DO YOU HAVE ANY RASHES OR OPEN SORES? NO . ALLERGIC/IMMUNO: ARE YOU ALLERGIC TO SHELLFISH OR IV DYE? NO . ANY NEW ALLERGIES? NO . PSYCHIATRIC: DO YOU HAVE THOUGHTS OF HURTING YOURSELF OR SOMEONE ELSE? NO . ARE YOU ABUSED, NEGLECTED, OR IN AN UNSAFE ENVIRONMENT? NO . ENDOCRINOLOGY: ARE YOU DIABETIC? NO . OTHER: DO YOU NEED ANY PRESCRIPTIONS? NO . IF YES, PLEASE LIST: ____ . ANY NEW PROBLEMS WITH YOUR MEDICATIONS? NO . WHEN DID YOU LAST EAT? ____ . WHEN DID YOU LAST DRINK? ____ . WHAT DID YOU LAST DRINK? ____ . NAME OF PERSON DRIVING YOU HOME? ____ . DO YOU HAVE ANY OTHER QUESTIONS OR CONCERNS NO . VITAL SIGNS WT 277.6 LBS, HT 78 IN, BMI 32.08 INDEX, BP 152/99 MM HG, HR 76 /MIN, RR 18 /MIN, TEMP 97.7 F, OXYGEN SAT % 93%, NA INITIALS SC 10:36. EXAMINATION GENERAL EXAMINATION: PSYCHALERT , ORIENTED X 3 , APPROPRIATE MOOD AND AFFECT, SMILING TODAY . LUNGS:CLEAR TO AUSCULTATION BILATERALLY. HEART:HEART RATE REGULAR. MUSCULOSKELETAL:PALPATION: TENDER OVER LUMBAR SPINOUS PROCESSES. SIGNIFICANT QUADRICEPS WEAKNESS IN RIGHT LEG .RIGHT ANKLE FUSED AND WITH VERY POOR FLEXION AND EXTENSION. CANE USED FOR BALANCE. GAIT ANTALGIC. VERY FEW TRIGGERPOINT IDENTIFIED OVER LUMBAR PARASPINOUS MUSCLES.. EXTREMITIES:RIGHT LEG - LEG ROTATED AT KNEE. POOR FLEXION/EXTENSION RIGHT ANKLE. ASSESSMENTS MYALGIA - M79.1 (PRIMARY) LUMBAR DISC DISPLACEMENT WITHOUT MYELOPATHY - M51.26 LUMBAR RADICULOPATHY - M54.16 CHRONIC PRESCRIPTION OPIATE USE - Z79.891 TREATMENT MYALGIA NOTES: UTOX TODAY. KEEP WALKING. CLINICAL NOTES: ISTOP REGISTRY REVIEWED AND DEMNOSTRATES COMPLLIANCE. BRINGS IN MEDICATIONS WHICH IS APPROPRIATE FOR WHAT WAS DISPENSED. RECENT URINE TOXICOLOGY REVIEWED. NO UNAUTHORIZED MEDICATIONS. NO ILLICIT SUBSTANCES AND PRESCRIBED MEDICATIONS WERE PRESENT. REVIEWED WITH PT TO KEEP HIS MEDS SECURED AT HOME HE HAS YOUNG CHILDREN. PROCEDURE CODES [id number] ESTABILISHED PATIENT [facility] CHARGE [id number] PAIN ASSESS POS TOOL F/U PLAN DOC [id number] DOC MEDS VERIFIED W/PT OR RE DISPOSITION & COMMUNICATION FOLLOW UP 3 MONTHS (REASON: BACK PAIN) ELECTRONICALLY SIGNED BY MARILU ROA ON 03/14/2017 AT 10:12 AM EDT DISCLAIMER : THIS IS A VISIT SUMMARY EXTRACTED FROM THE [employer] CHART. IT IS NOT A COPY OF THE [employer] PROGRESS NOTE. CINDY
== END ==
LOC: M PAIN 10:00
PROVIDERS: ATTEND Nurse Practitioner Family
DX: G89.29 Other chronic pain (principal); M79.1 Myalgia; M51.26 Other intervertebral disc displacement, lumbar region; M54.16 Radiculopathy, lumbar region; I10 Essential (primary) hypertension; Z79.891 Long term (current) use of opiate analgesic; Z88.0 Allergy status to penicillin; Z91.030 Bee allergy status; Z79.899 Other long term (current) drug therapy

== ENCOUNTER → 2017-05-31 | Outpatient (CLI) | payer MEDICARE, MEDICAID | LOC: M PAIN 10:45 | PROVIDERS: ATTEND Nurse Practitioner Family | DX: M79.1 Myalgia (principal); M51.26 Other intervertebral disc displacement, lumbar region; M54.16 Radiculopathy, lumbar region; I10 Essential (primary) hypertension; F17.210 Nicotine dependence, cigarettes, uncomplicated; Z79.891 Long term (current) use of opiate analgesic; Z79.899 Other long term (current) drug therapy; Z88.0 Allergy status to penicillin; Z91.030 Bee allergy status ==

== ENCOUNTER → 2017-09-02 | Outpatient (CLI) | payer MEDICARE, MEDICAID | LOC: M PAIN 10:45 | DX: M79.1 Myalgia (principal); M54.16 Radiculopathy, lumbar region; F17.210 Nicotine dependence, cigarettes, uncomplicated; Z79.891 Long term (current) use of opiate analgesic; Z79.899 Other long term (current) drug therapy; Z91.030 Bee allergy status; Z88.0 Allergy status to penicillin | CPT/HCPCS: G0463 ==

== ENCOUNTER → 2018-04-13 | Outpatient (CLI) | payer MEDICARE, MEDICAID | LOC: M PAIN 11:15 | DX: M51.16 Intervertebral disc disorders with radiculopathy, lumbar region (principal); M79.1 Myalgia; M79.604 Pain in right leg; I10 Essential (primary) hypertension; Z79.891 Long term (current) use of opiate analgesic; Z79.899 Other long term (current) drug therapy; Z88.0 Allergy status to penicillin; Z91.030 Bee allergy status; Z87.891 Personal history of nicotine dependence | CPT/HCPCS: G0463 ==